=== PATIENT | male | born 1995 | race Caucasian/White ===

== ENCOUNTER 2016-09-23 19:24 | Emergency (ER) | payer MEDICAID ==
[~2016-09-23] VITALS: Ht 162.6 cm; Wt 112.0 kg
[2016-09-23 19:26] VITALS: Ht 162.6 cm; Wt 112.0 kg
[2016-09-23 20:42] LABS: URINE BLOOD (Dip) POC Negative (NEGATIVE)
[2016-09-23] MEDS ORDERED: MUPI15CR9 TOP (21:11)
--- NOTE | 2016-09-24 01:42 | ERD ---
ER Documentation Chief Complaint Date/Time DATE: 09/24/16 TIME: 01:39 Chief Complaint painful urination x 1 month on and off HPI This patient is a 21-year-old male presenting to the emergency department with complaints of rash to the head of his penis which is been ongoing intermittently for the past month. Additionally he reports some mild dysuria intermittently. Symptoms are currently mild. He has one sexual partner and they are monogamous. He denies history of diabetes. He denies materia, fevers , testicular pain, or other symptoms currently. ROS All systems reviewed and are negative except as per history of present illness. Medications Home Meds Active Scripts Mupirocin Calcium* (Mupirocin*) 2% - 15 Gram Cream..g., 1 APPLIC TOP TID, #1 TUB Prov:LINA QUGILEY PA-C 09/23/16 Allergies Allergies: Coded Allergies: Penicillins (Verified Allergy, 02/28/13) PMhx/Soc Medical and Surgical Hx: pt denies Medical Hx, pt denies Surgical Hx Hx Alcohol Use: No Hx Substance Use: No Hx Tobacco Use: No Smoking Status: Never smoker Physical Exam Vitals Vital Signs Date Time Temp Pulse Resp B/P Pulse Ox O2 Delivery O2 Flow Rate FiO2 09/23/16 19:26 98.4 74 20 177/76 100 Physical Exam Const: Nontoxic, well-appearing male in no acute distress. Head: Atraumatic Eyes: Normal Conjunctiva ENT: Normal External Ears, Nose and Mouth. Neck: Full range of motion..~ No meningismus. Resp: Clear to auscultation bilaterally Cardio: Regular rate and rhythm, no murmurs Abd: Soft, non tender, non distended. Normal bowel sounds Exam: The glans penis is slightly erythematous but no signs of maceration. Scrotum: Normal Lymph: No inguinal lymphadenopathy Discharge: None Skin: No petechiae or rashes Back: No midline or flank tenderness Ext: No cyanosis, or edema Neur: Awake and alert Psych: Normal Mood and Affect Results 24 hrs Laboratory Tests Test 09/23/16 20:46 Bedside Urine pH (LAB) 7.5 Bedside Urine Protein (LAB) 1+ Bedside Urine Glucose (UA) Negative Bedside Urine Ketones (LAB) Trace Bedside Urine Blood Negative Bedside Urine Nitrite (LAB) Negative Bedside Urine Leukocyte Esterase (L Negative Procedures/MDM 21-year-old male presents to the emergency department complaining of intermittent dysuria and rash to the glans penis. On physical examination the patient's blood pressure is elevated at 177/76. Patient's blood pressure was elevated (>120/80) but appears stable without evidence of hypertension emergency or urgency. The patient was counseled about the risks of hypertension and urged to pursue outpatient monitoring and therapy within a week with their primary care physician. Exam of the glans penis showed some mild erythema but no maceration. The patient was already on clotrimazole cream by his primary care physician and I advised him to continue this exactly as prescribed. Additionally I prescribed mupirocin in case of bacterial etiology. Urine dip is negative for urinary tract infection or other abnormalities. The patient stable for outpatient management. Questions and concerns were addressed. The patient understood and agreed with the discharge plan and diagnosis. Close follow-up with the primary care physician advised. Information for possible referral to specialist was given. Strict ER return precautions were discussed. Departure Diagnosis: Primary Impression: Dysuria Additional Impression: Balanitis Condition: Fair Patient Instructions: Dysuria, Balanitis Referrals: DAMARI LAWSON MD Additional Instructions: Follow up with your PCP within the next 1-3 days for a repeat evaluation and a possible referral to a specialist, if required. Return the the emergency department immediately if symptoms worsen or change. If you have any questions regarding medications, ask your pharmacist or us before you leave. If any adverse reactions, occur while taking your medications, discontinue the treatment and return to the emergency department immediately. If any new or worsening symptoms, uncontrolled fevers, or other unexplained symptoms occur, return to the emergency department immediately. Take your medications as directed, and complete the entire course of treatment. LINA QUIGLEY PA-C Sep 24, 2016 01:42
== END 2016-09-23 21:23 | disposition home or self-care (01) ==
LOC: FTE 19:24
DX: R30.0 Dysuria (principal); N48.1 Balanitis
CPT/HCPCS: 81003; Z7502; 99283